=== PATIENT | female | born 1965 | race African-American/Black ===

== ENCOUNTER 2020-03-02 09:17 | Emergency (ER) | payer OTHER, SELFPAY ==
[2020-03-02 09:19] VITALS: BP 121/83; PULSE 76; RESP 16; TEMP 36.4; O2SAT 100
--- NOTE | 2020-03-02 09:51 | ED.URI ---
HPI - URI/Sore Throat General Chief Complaint: Upper Respiratory Infection Stated Complaint: SORE THROAT Time Seen by Provider: 03/02/20 09:35 Source: patient and RN notes reviewed Mode of arrival: ambulatory Limitations: no limitations History of Present Illness HPI Narrative: Patient presents today with a 2-day history of sore throat and sore neck. Denies fever, sneezing, rhinorrhea, cough. She does report some mild postnasal drip as well. Currently rates her sore throat 03/01 and has been using Tylenol, salt water gargles, and Flexeril with some relief. MD elicited complaint: sore throat Related Data Home Medications Medication Instructions Recorded Confirmed Vitamin D3 03/02/20 aspirin 81 mg PO DAILY 03/02/20 03/02/20 cyclobenzaprine-TENS unit-elec 03/02/20 isosorbide mononitrate 30 mg PO DAILY 03/02/20 03/02/20 losartan-hydrochlorothiazide 1 tablet PO DAILY 03/02/20 03/02/20 Allergies Allergy/AdvReac Type Severity Reaction Status Date / Time lisinopril Allergy Severe Hives / Verified 03/02/20 09:31 Red Face Sulfa (Sulfonamide Allergy Intermediate HIVES Verified 03/02/20 09:31 Antibiotics) Review of Systems Review of Systems: Narrative: CONSTITUTIONAL: Denies body aches, fever, chills, or sweats. EYES: Denies visual changes, redness, or discharge. ENT: Denies rhinorrhea, congestion, or otalgia.+ Sore throat, postnasal drip CARDIOVASCULAR: Denies chest pain, palpitations, or edema. RESPIRATORY: Denies cough or dyspnea. GASTROINTESTINAL: Denies abdominal pain, nausea, vomiting, or diarrhea. GENITOURINARY: Denies dysuria or hematuria. SKIN: Denies rash, itching, or wounds. MUSCULOSKELETAL: Denies back pain, joint pain. + Sore neck NEUROLOGIC: Denies headache, numbness, tingling, or weakness. PSYCH: Denies depression or anxiety. PMFSH Comments At time of signature, I have reviewed and agree with nursing past medical, surgical, social and family history unless otherwise noted. Please see nursing chart for further information. There is no relevant family history pertinent to the presenting complaint Exam Narrative: Exam Narrative: GENERAL: Well-appearing, well-nourished, and in no acute distress. HEAD: Normocephalic, atraumatic. EYES: EOMI. No redness or drainage. Conjunctivae normal. ENT: Mucous membranes pink and moist. Nares clear. No rhinorrhea. TMs normal bilaterally. Throat mildly erythematous and edematous without exudate. Uvula midline. NECK: Normal AROM. Supple. No lymphadenopathy. CHEST: No respiratory distress. Clear to auscultation. HEART: Regular rate and rhythm. No murmur appreciated. Normal peripheral pulses. EXTREMITIES: Normal range of motion. No edema. SKIN: Warm, dry, no rash. Capillary refill normal. Normal skin turgor. NEURO: No focal deficits. Alert and oriented x3. Gait steady. PSYCH: Normal affect. No signs of depression or anxiety. Course Vital Signs Vital signs: Vital Signs Temperature 97.5 F L 03/02/20 09:19 Pulse Rate 76 03/02/20 09:19 Respiratory Rate 16 03/02/20 09:19 Blood Pressure 121/83 03/02/20 09:19 Pulse Oximetry 100 03/02/20 09:19 Temperature 97.5 F L 03/02/20 09:19 Pulse Rate 76 03/02/20 09:19 Respiratory Rate 16 03/02/20 09:19 Blood Pressure 121/83 03/02/20 09:19 Pulse Oximetry 100 03/02/20 09:19 Reviewed. Pt has been instructed to follow up with her PCP regarding her elevated blood pressure today. MDM - URI/Sore Throat Differential Diagnosis Differential diagnosis: Likely upper respiratory infection, sinusitis, viral infection, pharyngitis and other (Strep throat) Lab Data Attestation: I reviewed the patient's lab results. Labs: Strep Screen Presumptive Negative *(Reference Range: Negative)* Critical Care Time Critical Care Time Critical Care Time: No Discharge Plan Discharge Clinical Impression: Pharyngitis Qualifiers: Pharyngitis/tonsillitis etiology: unspecifie
== END 2020-03-02 10:02 | disposition home or self-care (01) ==
PROVIDERS: Emergency Provider Nurse Practitioner; PCP Emergency Medicine
DX: J02.9 Acute pharyngitis, unspecified (principal); Z79.82 Long term (current) use of aspirin; I10 Essential (primary) hypertension
CPT/HCPCS: 87081; 87880; 99213; G0463

== ENCOUNTER 2023-10-18 00:46 | Emergency (ER) | payer OTHER, SELFPAY ==
[2023-10-18 00:47] VITALS: BP 141/81; PULSE 75; RESP 18; TEMP 36.6; O2SAT 100
--- NOTE | 2023-10-18 01:23 | ED.EAR ---
HPI - Ear Problem General Chief complaint: Ear Stated complaint: bug in ear? Time Seen by Provider: 10/18/23 01:18 History of Present Illness HPI Narrative: 57-year-old female reports for evaluation for concern for a bug in her left ear. Patient states she was sleeping when she felt something crawl in her ear and since and experiences vibration in her left ear. Related Data Home Medications Medication Instructions Recorded Confirmed aspirin 81 mg tablet,delayed 81 mg PO DAILY 03/02/20 10/29/21 release isosorbide mononitrate 30 mg 30 mg PO DAILY 03/02/20 10/29/21 tablet,extended release 24 hr cholecalciferol (vitamin D3) 50 50 mcg PO DAILY 05/16/20 10/29/21 mcg (2,000 unit) capsule multivitamin 1 tablet PO .COMPLEX 05/16/20 10/29/21 Allergies Allergy/AdvReac Type Severity Reaction Status Date / Time lisinopril Allergy Severe Hives / Verified 10/18/23 01:07 Red Face Sulfa (Sulfonamide Allergy Unknown Unknown Verified 10/18/23 01:07 Antibiotics) Review of Systems Review of Systems: CONSTITUTIONAL: Denies fever, chills, or sweats. EYES: Denies visual changes, redness, or discharge. ENT: See HPI CARDIOVASCULAR: Denies chest pain, palpitations, or edema. RESPIRATORY: Denies cough or dyspnea. GASTROINTESTINAL: Denies abdominal pain, nausea, vomiting, or diarrhea. GENITOURINARY: Denies dysuria or hematuria. SKIN: Denies rash or itching. MUSCULOSKELETAL: Denies back pain, joint pain, or myalgia. NEUROLOGIC: Denies headache, numbness, or weakness. PSYCHIATRIC: Denies anxiety or depression. [facility] Past Medical History Medical History (Updated 10/18/23 @ 02:12 by Annie Browning PA-C) Hypertension Family History Family History Sibling Hypertension Patient's brother is in good health Family history of diabetes mellitus in first degree relative Family history of heart disease in male family member before age 55 Mother Hypertension Family history of diabetes mellitus in first degree relative Family history of heart disease in male family member before age 55 Patient's mother is Father Family history of diabetes mellitus in first degree relative Father Diabetes mellitus Mother Diabetes mellitus Hypertension Patient's mother is , Onset Age: 71 Family history of cardiovascular disease Family history of kidney disease Sibling Diabetes mellitus Cerebrovascular accident Social History Social History Smoking status: Former smoker Smoking end date: 11/22/05 Alcohol intake: current Exam Narrative: GENERAL: Well-appearing, well-nourished, and in no acute distress. HEAD: Normocephalic, atraumatic. ENT: Nares clear, no rhinorrhea or epistaxis. Mucous membranes moist. unable to visualize left TM. Cerumen impaction with possible insect leg wrapped around cerumen. Otherwise normal canal. NECK: Supple. CHEST: Clear to auscultation. No respiratory distress. HEART: Regular rate and rhythm. No murmur heard. Normal peripheral pulses. EXTREMITIES: Normal range of motion. No edema. SKIN: Warm, dry, no rash. NEURO: No focal deficits. Alert and oriented x3 Course Vital Signs Vital signs: Vital Signs Temperature 97.8 F 10/18/23 00:47 Pulse Rate 75 10/18/23 00:47 Respiratory Rate 18 10/18/23 00:47 Blood Pressure 141/81 H 10/18/23 00:47 Pulse Oximetry 100 10/18/23 00:47 Oxygen Delivery Room Air 10/18/23 00:47 Temperature 97.8 F 10/18/23 00:47 Pulse Rate 75 10/18/23 00:47 Respiratory Rate 18 10/18/23 00:47 Blood Pressure 141/81 H 10/18/23 00:47 Pulse Oximetry 100 10/18/23 00:47 Oxygen Delivery Room Air 10/18/23 00:47 Procedures FB Removal Ear Foreign Body #1: Foreign Body Removal Date: 10/18/23 Foreign Body Removal Time: 02:11 Location: ear canal (L)
== END 2023-10-18 02:39 | disposition home or self-care (01) ==
PROVIDERS: Emergency Provider Physician Assistant
DX: T16.2XXA Foreign body in left ear, initial encounter (principal); I10 Essential (primary) hypertension; Z87.891 Personal history of nicotine dependence; Z79.82 Long term (current) use of aspirin; W44.F4XA Insect entering into or through a natural orifice, initial encounter
CPT/HCPCS: 69200; 99282